=== PATIENT | male | born 1990 | race American Indian/Alaskan Native ===

== ENCOUNTER 2019-01-26 10:35 | Emergency (ER) | payer BC ==
[2019-01-26 10:59] VITALS: BP 118/62
--- NOTE | 2019-01-26 11:24 | Emergency Department Report ---
Minor Respiratory - HPI Chief Complaint: Upper Respiratory Infection Stated Complaint: CHEST PAIN Time Seen by Provider: 01/26/19 11:16 Duration: 2 weeks Pain Location: Chest Severity: mild Minor Respiratory: Yes Cough, Yes Sick Contacts, Yes Chest Pain, Yes Shortness of Breath, No Rhinorrhea, No Sore Throat, No Able to Tolerate Fluids, No Ear Pain, No Hemoptysis, No Fever Other History: Mike is a 28 yo male with hx of tobacco abuse who presents with cough, shortness of breath, chest pain for the past 2 weeks. ED Review of Systems ROS: Stated complaint: CHEST PAIN Other details as noted in HPI Constitutional: malaise ENT: denies: throat pain Respiratory: cough, shortness of breath. denies: wheezing Cardiovascular: chest pain Gastrointestinal: denies: abdominal pain, nausea, vomiting ED Past Medical Hx - Past Medical History Previous Medical History?: No - Surgical History Past Surgical History?: No - Social History Smoking Status: Current Every Day Smoker - Medications Home Medications: Home Medications Medication Instructions Recorded Confirmed Last Taken Type Doxycycline Hyclate [Doxycycline 100 mg PO Q12HR 7 Days #14 tab 01/26/19 Unknown Rx Hyclate TAB] Prednisone [predniSONE 10 mg 10 mg PO .TAPER #1 tab.ds.pk 01/26/19 Unknown Rx (6-Day Pack, 21 Tabs)] Minor Respiratory Exam - Exam General: Vital signs noted. No distress. Alert and acting appropriately. HEENT: Yes Moist Mucous Membranes, No Pharyngeal Erythema, No Pharyngeal Exudates, No Rhinorrhea, No Conjuctival Injection Neck: Yes Supple, No Adenopathy Lungs: Yes Good Air Exchange, No Wheezes, No Ronchi, No Stridor, No Cough, No Labored Respirations, No Retractions, No Use of Accessory Muscles, No Other Abnormal Lung Sounds Heart: Yes Regular, No Murmur Abdomen: Yes Normal Bowel Sounds, No Tenderness, No Peritoneal Signs Skin: No Rash, No Edema Neurologic: Alert and oriented, no deficits. Musculoskeletal: Unremarkable. ED Course Vital Signs 01/26/19 10:57 Temperature 98.7 F Pulse Rate 76 Respiratory 16 Rate Blood Pressure 118/62 O2 Sat by Pulse 100 Oximetry ED Medical Decision Making - Medical Decision Making Acute bronchitis antibiotics indicated due to tobacco abuse. Prescription provided for doxycycline and prednisone Critical care attestation.: If time is entered above; I have spent that time in minutes in the direct care of this critically ill patient, excluding procedure time. ED Disposition Clinical Impression: Acute bronchitis Disposition: - TO HOME OR SELFCARE Is pt being admited?: No Does the pt Need Aspirin: No Condition: Stable Instructions: Acute Bronchitis (ED) Prescriptions: Doxycycline Hyclate [Doxycycline Hyclate TAB] 100 mg PO Q12HR 7 Days #14 tab Prednisone [predniSONE 10 mg (6-Day Pack, 21 Tabs)] 10 mg PO .TAPER #1 tab.ds.pk Forms: Work/School Release Form(ED)
== END 2019-01-26 11:49 | disposition home or self-care (01) ==
LOC: ED 10:35
DX: J20.9 Acute bronchitis, unspecified (principal); F17.200 Nicotine dependence, unspecified, uncomplicated; Z79.899 Other long term (current) drug therapy
CPT/HCPCS: 99281